=== PATIENT | male | born 1950 | race Caucasian/White ===

== ENCOUNTER 2018-01-02 11:32 | Emergency (ER) | payer BC ==
[~2018-01-02] VITALS: Ht 177.8 cm; Wt 86.2 kg
[2018-01-02 11:48] VITALS: BP_SYST 157
[2018-01-02 13:34] VITALS: BP_SYST 157
== END 2018-01-02 13:34 | disposition home or self-care (01) ==
LOC: SED 11:32
DX: S39.011A Strain of muscle, fascia and tendon of abdomen, initial encounter (principal); K21.9 Gastro-esophageal reflux disease without esophagitis; F41.9 Anxiety disorder, unspecified; W18.41XA Slipping, tripping and stumbling without falling due to stepping on object, initial encounter; Y93.89 Activity, other specified; Y92.89 Other specified places as the place of occurrence of the external cause; Y99.8 Other external cause status
CPT/HCPCS: 99284